=== PATIENT | female | born 1980 | race Caucasian/White ===

== ENCOUNTER 2020-04-09 07:39 | Outpatient (CLI) | payer OTHER, SELFPAY ==
--- NOTE | ~2020-04-09 | US_ITS ---
EXAMINATION: US pelvic complete w TV DATE: 04/09/2020 08:34 INDICATION: Pelvic pain. Frequent irregular periods. Comparison:No prior studies for comparison. TECHNIQUE: Multiple transabdominal and endovaginal sonographic images of the pelvis performed. FINDINGS: The uterus measures 9.1 x 6.2 x 4.6 cm. There are nabothian cysts. Uterine myometrium is so mewhat heterogeneous, although no discrete mass identified. The endometrial complex measures 12 mm. The right ovary measures 2.2 x 2.4 x 1.7 cm and the left ovary measures 2.9 x 2.5 x 1.8 cm. There ar e small follicles in each ovary. There is no free fluid in the pelvis. There are no abnormal masses seen on either side. IMPRESSION: 1. Mild endometrial thickening measuring 12 mm. Reviewed, dictated and finalized at location A. KILN OPERATOR
== END 2020-04-09 07:40 | disposition home or self-care (01) ==
LOC: ANHIMG 07:45
PROVIDERS: Visit Provider Obstetrics & Gynecology
DX: N92.1 Excessive and frequent menstruation with irregular cycle (principal); R93.89 Abnormal findings on diagnostic imaging of other specified body structures
CPT/HCPCS: 76830; 76856

== ENCOUNTER 2020-04-13 02:05 | Outpatient (CLI) | payer OTHER, SELFPAY ==
[2020-04-13 17:23] LABS: SARS-CoV-2 RNA PCR Negative
== END 2020-04-13 02:06 | disposition home or self-care (01) ==
LOC: ANHCOVIDDT 02:08
PROVIDERS: Visit Provider Obstetrics & Gynecology
DX: Z01.812 Encounter for preprocedural laboratory examination (principal); Z20.822 Contact with and (suspected) exposure to COVID-19
CPT/HCPCS: C9803; U0003

== ENCOUNTER 2020-04-16 01:45 | Day surgery (SDC) | payer OTHER, SELFPAY ==
[2020-04-11 09:56] VITALS: BMI 30.6
--- NOTE | 2020-04-13 15:59 | P.HP_ITS ---
H&P: HPI History of Present Illness Date/Time: 04/13/20 15:59 Chief Complaint: heavy irregular periods Narrative: Flower Daniel is a 40 year old female with h/o heavy irregular periods despite being on OCP. She is here for ablation Review of Systems Review of Systems: All systems reviewed & are unremarkable except as noted in HPI and below PMFSH Past Medical History Medical History Vaginal delivery x5 Surgical History Surgical History H/O hernia repair History of appendectomy 04/18 History of bilateral tubal ligation 10/19 History of laparoscopy History of ovarian cystectomy 05/1999 [place] teeth extracted Family History Family History Father History of blood clots Diabetes mellitus Hypertension Hypercholesteremia Grandparent Breast cancer Cervical cancer Ovarian cancer Social History Social History Smoking status: Never smoker Second hand tobacco smoke exposure: No Alcohol intake: never Substance use: never Spiritual care concerns: No Meds Home Medications and Allergies Home Medications Medication Instructions Recorded Confirmed Type acetaminophen 325 mg capsule 325 mg PO Q6H PRN 03/26/20 04/11/20 History cetirizine 10 mg capsule 10 mg PO DAILY 03/26/20 04/11/20 History Allergies Allergy/AdvReac Type Severity Reaction Status Date / Time nitrofurantoin Allergy Severe HIVES/BOTTOM Verified 04/11/20 09:54 [From Macrobid] OF FEET WITH UNCONTROLLED ITCHING Exam Const: General: no acute distress, alert and awake Resp: Auscultation: clear to auscultation bilaterally Cardio: Rate: regular rate Rhythm: regular rhythm GI: Inspection: non-distended GI Palp: Yes Soft to palpation and No Tenderness to palpation present (GI) : Bimanual exam- vagina & uterus: normal bimanual exam, uterine size normal, uterine mobility normal, non-tender and soft Bimanual Exam- Adnexa, other: normal adnexae, no masses and No adnexal tenderness Extrem: General: no pedal edema and no calf tenderness Psych: Mental Status: mental status grossly normal Assessment and Plan Assessment and plan (1) Menometrorrhagia: Code(s): N92.1 - Excessive and frequent menstruation with irregular cycle Status: Acute Assessment and Plan: She signed consent for D&C, hysteroscopy, endometrial ablation after risks, benefits, complications, and alternatives discussed. She expressed understanding and wishes to proceed. She is s/p tubal ligation
[2020-04-16 11:18] VITALS: BMI 30.7
[2020-04-16 11:21] VITALS: BP 141/88; PULSE 82; RESP 18; TEMP 36.7; O2SAT 99
[2020-04-16] MEDS: ACETAMINOPHEN 500 MG TABLET 1000 MG PO (11:24)
[2020-04-16] MEDS: LACTATED RINGERS 1,000 ML 30 ML IV CONT (11:38)
--- NOTE | 2020-04-16 11:55 | WPDHPUPDATE1 ---
History and Physical Update Update Date/Time: 04/16/20 11:55 History and Physical has been reviewed, including an updated exam of the patient. There are NO changes in the patient's condition. Risks, benefits, and alternatives have been discussed and questions answered. Patient agrees to proceed with procedure.
--- NOTE | 2020-04-16 12:25 | P.PNAN_ITS ---
Anes - Initial Pre Proc Eval Procedure: Operation Date: 04/16/20 13:00 Proposed Procedures p Hysteroscopy, Dilation and Curettage With Jennifer Ablation - Flower Castellanos MD Date/Time: 04/16/20 12:25 Surgeon: Flower Castellanos MD Pre Op Diagnosis: Menometrorrhagia Patient Data Age: 40 Gender: F Height: 5 ft 5 in Weight: 83.6 kg Last Vital Signs Temp 36.7 C 04/16/20 11: Pulse 82 04/16/20 11:21 Resp 18 04/16/20 11:21 BP 141/88 H 04/16/20 11:21 Pulse Ox 99 04/16/20 11:21 Allergies Allergy/AdvReac Type Severity Reaction Status Date / Time nitrofurantoin Allergy Severe HIVES/BOTTOM Verified 04/16/20 11:17 [From Macrobid] OF FEET WITH UNCONTROLLED ITCHING Home Medications Medication Instructions Recorded Confirmed Type acetaminophen 325 mg capsule 325 mg PO Q6H PRN 03/26/20 04/16/20 History cetirizine 10 mg capsule 10 mg PO DAILY 03/26/20 04/16/20 History Patient hx anesthesia problems: none Family hx anesthesia problems: none PMFSH Past Medical History Medical History Vaginal delivery x5 Surgical History Surgical History H/O hernia repair History of appendectomy 04/18 History of bilateral tubal ligation 10/19 History of laparoscopy History of ovarian cystectomy 05/1999 [place] teeth extracted Family History Family History Father History of blood clots Diabetes mellitus Hypertension Hypercholesteremia Grandparent Breast cancer Cervical cancer Ovarian cancer Social History Social History Smoking status: Never smoker Second hand tobacco smoke exposure: No Alcohol intake: never Substance use: never Living arrangements: with family Spiritual care concerns: No Anes - Eval Final PreProcedure Day of Procedure 04/16/20 12:25 Patient weight: obese Heart: regular rate and rhythm Lungs: clear to auscultation Airway: Mallampati scale class II Neurological: alert and oriented Last oral intake: >/= 8 hours ASA classification: II Emergent: no Anesthetic plan: proceed Anesthesia type and monitoring: general GIVS and standard monitoring Informed Consent: The patient's anesthetic plan and its attendant risks and benefits were discussed with the patient/family/POA. Questions were solicited and answers provided to the satisfaction of the patient/family/POA.
--- NOTE | 2020-04-16 12:47 | PM.PROC ---
Procedure Note - Detailed Date of procedure: 04/16/20 Pre-op diagnosis: Menometrorrhagia Post-op diagnosis: same Procedure performed: D&C, hysteroscopy, Jennifer endometrial ablation Description of procedure: She was taken to the operating room where she was sedated and placed in dorsal lithotomy position. Speculum was placed in the vagina. The anterior lip of the cervix was grasped with a single-tooth tenaculum. The uterus sounded to 8.5 cm. The cervix was dilated to allow passage of the hysteroscope, which revealed normal intrauterine anatomy with both tubal ostia identified. A sharp curettage was performed. The curettings were sent for pathologic evaluation. A 8. Hegar dilator was used to measure the endocervical canal at 3 cm, yielding a cavity length of 5.5 cm. The minora device was introduced. The cavity assessment passed on the 1st attempt. The cycle ran for 2 minutes. The minora device was removed. A 2nd look was taken with the hysteroscope, which revealed excellent appearing ablation. The tenaculum was removed. The cervix was hemostatic. All instruments were removed from the vagina. She tolerated the procedure well. Sponge, lap, and instrument counts were correct x2. She was taken to the recovery room in stable condition. Anesthesia: MAC Surgeon: Flower Castellanos MD Estimated blood loss (mL): 10 Drains: No Packing: No Pathology: yes Complications: No immediate complications Condition: stable Disposition: PACU Findings: Normal endometrial cavity, excellent appearing ablation
[2020-04-16] MEDS: KETOROLAC 30 MG/ML VIAL (*BKC) IV PUSH (13:07)
[2020-04-16 13:14] VITALS: BP 122/69; PULSE 73; RESP 16; O2SAT 96
[2020-04-16 13:40] VITALS: BP 140/84; PULSE 54; RESP 14
[2020-04-16 14:10] VITALS: BP 152/92; PULSE 50; RESP 14
== END 2020-04-16 14:24 | disposition home or self-care (01) ==
PROVIDERS: Visit Provider Obstetrics & Gynecology
PROC: 0U5B8ZZ Destruction of Endometrium, Via Natural or Artificial Opening Endoscopic (ICD-10-PCS; CPT 58563; principal; 2020-04-16 13:00)
DX: N92.1 Excessive and frequent menstruation with irregular cycle (principal); N71.1 Chronic inflammatory disease of uterus; E66.9 Obesity, unspecified; Z68.30 Body mass index [BMI] 30.0-30.9, adult
CPT/HCPCS: 58563; 88305; A9270; J1885; J2250; J3010; J7030; J7120

== ENCOUNTER 2020-08-18 07:37 | Outpatient (CLI) | payer OTHER, SELFPAY ==
--- NOTE | ~2020-08-18 | MM_ITS ---
EXAMINATION: MM screening alejandra BI w luci HISTORY: Screening mammogram TECHNIQUE: Craniocaudal and mediolateral oblique 3-D tomosynthesis images were obtained and synthetic 2-D images were generated. CAD analysis was submitted and interpreted. COMPARISON: No prior mammogram is available for comparison at this institution. BREAST PARENCHYMAL COMPOSITION: There are scattered areas of fibroglandular density. FINDINGS: There is no evidence of suspicious mass, calcification, or architectural distortion to sugg est malignancy in either breast. There has been no suspicious interval change. IMPRESSION: 1. No mammographic evidence of malignancy. 2. Recommend routine screening mammography in one year. BI-RADS Category 1: Negative Reviewed, dictated and finalized at location A.
== END 2020-08-18 07:38 | disposition home or self-care (01) ==
LOC: ANHIMG 07:39
PROVIDERS: Visit Provider Obstetrics & Gynecology
DX: Z12.31 Encounter for screening mammogram for malignant neoplasm of breast (principal)
CPT/HCPCS: 77063; 77067